=== PATIENT | female | born 1995 | race American Indian/Alaskan Native ===

== ENCOUNTER 2019-11-03 15:14 | Emergency (ER) | payer OTHER ==
--- NOTE | 2019-11-03 15:57 | Event Note ---
ED Screening Note ED Screening Note: pt states that she began the control patch yesterday states that she has a headache states she has mild SOB no leg swelling no CP no recent travel or surgery no n/v/d no fever no cough PMHx none no allergies to meds she states that her RAILROAD AUDITOR concerned her with a blood clot she has only used the patch for one day This initial assessment/diagnostic orders/clinical plan/treatment(s) is/are subject to change based on patients health status, clinical progression and re- assessment by fellow clinical providers in the ED. Further treatment and workup at subsequent clinical providers discretion. Patient/guardian urged not to elope from the ED as their condition may be serious if not clinically assessed and managed. Initial orders include: labs, CXR
[2019-11-03 17:34] LABS: Alanine Aminotransferase 18 units/L (7-56); Albumin 4.2 g/dL (3.9-5); BUN/Creatinine Ratio 17; Blood Urea Nitrogen 12 mg/dL (7-17); Calcium 9.4 mg/dL (8.4-10.2); Hemolysis Index 4
--- NOTE | 2019-11-03 17:44 | XRay Report ---
CHEST 2 VIEWS INDICATION / CLINICAL INFORMATION: SOB. COMPARISON: None available. FINDINGS: SUPPORT DEVICES: None. HEART / MEDIASTINUM: No significant abnormality. LUNGS / PLEURA: No significant pulmonary or pleural abnormality. No pneumothorax. ADDITIONAL FINDINGS: No significant additional findings. IMPRESSION: 1. No acute findings. Signer Name: Orlin De La Rosa MD Signed: 11/03/2019 5:39 PM Workstation Name: [id number]
[2019-11-03 19:57] VITALS: BP 115/71
--- NOTE | 2019-11-03 20:12 | Emergency Department Report ---
ED General Adult HPI - General Chief complaint: Dyspnea/Respdistress Stated complaint: POSSIBLE BLOOD CLOT, Time Seen by Provider: 11/03/19 15:55 Source: patient Mode of arrival: Ambulatory Limitations: No Limitations - History of Present Illness Initial comments: This is a 24-year-old female with no prior medical history who presents the ED complaining of shortness of breath after placing a new control patch on her skin yesterday. Patient states that she was recently prescribed contraceptive for the first time by her FRETTED INSTRUMENT INSPECTOR. Patient states that shortness of breath began today. Patient states that she had to leave work due to symptoms. Patient denies fever/chills/chest pain/dizziness/lightheadedness/any other symptoms. - Related Data Allergies Allergy/AdvReac Type Severity Reaction Status Date / Time No Known Allergies Allergy Unverified 11/03/19 15:59 ED Review of Systems ROS: Stated complaint: POSSIBLE BLOOD CLOT, Other details as noted in HPI Comment: All other systems reviewed and negative ED Past Medical Hx - Past Medical History Previous Medical History?: No - Surgical History Past Surgical History?: No - Social History Smoking Status: Never Smoker Substance Use Type: None ED Physical Exam - General Limitations: No Limitations General appearance: alert, in no apparent distress - Head Head exam: Present: atraumatic, normocephalic - Eye Eye exam: Present: normal appearance - ENT ENT exam: Present: mucous membranes moist - Neck Neck exam: Present: normal inspection - Respiratory Respiratory exam: Present: normal lung sounds bilaterally. Absent: respiratory distress - Cardiovascular Cardiovascular Exam: Present: regular rate, normal rhythm. Absent: systolic murmur, diastolic murmur, rubs, gallop - GI/Abdominal GI/Abdominal exam: Present: soft, normal bowel sounds - Extremities Exam Extremities exam: Present: normal inspection - Back Exam Back exam: Present: normal inspection - Neurological Exam Neurological exam: Present: alert, oriented X3 - Psychiatric Psychiatric exam: Present: normal affect, normal mood - Skin Skin exam: Present: warm, dry, intact, normal color. Absent: rash ED Course Vital Signs 11/03/19 11/03/19 15:58 19:50 Temperature 97.8 F Pulse Rate 71 60 Respiratory 22 18 Rate Blood Pressure 128/76 Blood Pressure 115/71 [Right] O2 Sat by Pulse 99 100 Oximetry ED Medical Decision Making - Lab Data Result diagrams: 11/03/19 16:52 Laboratory Last Values D-Dimer 135.00 ng/mlDDU (0-234) 11/03/19 16:52 Sodium 139 mmol/L (137-145) 11/03/19 16:52 Potassium 4.3 mmol/L (3.6-5.0) 11/03/19 16:52 Chloride 101.2 mmol/L (98-107) 11/03/19 16:52 Carbon Dioxide 24 mmol/L (22-30) 11/03/19 16:52 Anion Gap 18 mmol/L 11/03/19 16:52 BUN 12 mg/dL (7-17) 11/03/19 16:52 Creatinine 0.7 mg/dL (0.7-1.2) 11/03/19 16:52 Estimated GFR > 60 ml/min 11/03/19 16:52 BUN/Creatinine Ratio 17 % 11/03/19 16:52 Glucose 99 mg/dL (65-100) 11/03/19 16:52 Calcium 9.4 mg/dL (8.4-10.2) 11/03/19 16:52 Total Bilirubin 0.20 mg/dL (0.1-1.2) 11/03/19 16:52 AST 25 units/L (5-40) 11/03/19 16:52 ALT 18 units/L (7-56) 11/03/19 16:52 Alkaline Phosphatase 65 units/L (35-129) 11/03/19 16:52 Total Protein 8.0 g/dL (6.3-8.2) 11/03/19 16:52 Albumin 4.2 g/dL (3.9-5) 11/03/19 16:52 Albumin/Globulin Ratio 1.1 % 11/03/19 16:52 HCG, Qual Negative (Negative) 11/03/19 16:52 - Radiology Data Radiology results: report reviewed, image reviewed Fluoro Time In Minutes: CHEST 2 VIEWS INDICATION / CLINICAL INFORMATION: SOB. COMPARISON: None available. FINDINGS: SUPPORT DEVICES: None. HEART / MEDIASTINUM: No significant abnormality. LUNGS / PLEURA: No significant pulmonary or pleural abnormality. No pneumothorax. ADDITIONAL FINDINGS: No significant additional findings. IMPRESSION: 1. No acute findings. Signer Name: Orlin De La Rosa MD Signed: 11/03/2019 5:39 PM Workstation Name: [id number] Transcribed By: TL Dictated By: Orlin De La Rosa MD Electronically Authenticated By: Orlin De La Rosa MD Signed Date/Time: 11/03/19 8557 - Medical Decision Making This is a 24-year-old healthy female presents to ED for one episode of shortness of breath not resolved. Discussed with the patient that this may be due to her contraceptive patch. Patient states that she has removed the patch and is symptom-free. She denies any other symptoms. Vital signs are normal d-dimer negative all labs are within normal limits. Discussed with patient to follow-up with her FRETTED INSTRUMENT INSPECTOR for new option of contraceptive management. Critical care attestation.: If time is entered above; I have spent that time in minutes in the direct care of this critically ill patient, excluding procedure time. ED Disposition Clinical Impression: Shortness of breath Disposition: DC-01 TO HOME OR SELFCARE Is pt being admited?: No Does the pt Need Aspirin: No Condition: Stable Instructions: Dyspnea (ED) Additional Instructions: Make sure to follow up with the FRETTED INSTRUMENT INSPECTOR as discussed. Remove contraceptive patch and do not use on to follow-up with FRETTED INSTRUMENT INSPECTOR doctor If you have any worsening symptoms or develop new symptoms please return to ED immediately. Referrals: [facility] [Provider Group] - 3-5 Days Forms: Work/School Release Form(ED) Time of Disposition: 20:44
== END 2019-11-03 20:53 | disposition home or self-care (01) ==
LOC: ED 15:14
DX: R06.02 Shortness of breath (principal)
CPT/HCPCS: 36415; 71046; 80053; 84703; 85379